=== PATIENT | male | born 1965 | race Caucasian/White ===

== ENCOUNTER 2021-02-03 19:17 | Emergency (ER) | payer SELFPAY ==
[~2021-02-03] VITALS: Ht 175.2 cm; Wt 106.6 kg
== END 2021-02-04 00:27 | disposition home or self-care (01) ==
LOC: ED 19:17
DX: S46.912A Strain of unspecified muscle, fascia and tendon at shoulder and upper arm level, left arm, initial encounter (principal); Z88.0 Allergy status to penicillin; W18.39XA Other fall on same level, initial encounter; Y93.89 Activity, other specified; Y92.89 Other specified places as the place of occurrence of the external cause; Y99.8 Other external cause status

== ENCOUNTER 2023-12-08 19:47 | Emergency (ER) | payer OTHER ==
[~2023-12-08] VITALS: Ht 175.2 cm; Wt 98.6 kg
[2023-12-08] MEDS ORDERED: Tetracaine Hydrochloride 0.5% 4 ML BOT OPH ONE (21:30)
[2023-12-08] MEDS ORDERED: FLUORESCEIN SODIUM 1 MG STRIP OPH ONE (21:30)
[2023-12-08] MEDS ORDERED: Doxycycline Hyclate 100 MG CAP PO ONE (21:55)
[2023-12-08] MEDS ORDERED: CEPHALEXIN 500 MG CAP PO ONE (21:55)
[2023-12-08] MEDS ORDERED: VIBRAMYCIN100 MG PO (21:56)
[2023-12-08] MEDS ORDERED: CEPHALEXIN500 M1 PO (21:56)
== END 2023-12-08 22:30 | disposition home or self-care (01) ==
LOC: ED 19:47
DX: L02.412 Cutaneous abscess of left axilla (principal); Z88.0 Allergy status to penicillin

== ENCOUNTER 2024-05-17 15:00 | Emergency (ER) | payer OTHER ==
[~2024-05-17] VITALS: Ht 175.2 cm; Wt 98.4 kg
[~2024-05-17 15:00] MED LIST: CEPHALEXIN500 M1 PO; VIBRAMYCIN100 MG PO
[2024-05-17] MEDS ORDERED: JARDIANCE25 MG PO (15:17)
[2024-05-17] MEDS ORDERED: AMANTADINE HCL100 M1 PO (15:17)
[2024-05-17] MEDS ORDERED: XARE20MG PO (15:17)
[2024-05-17] MEDS ORDERED: ATORVASTATIN CA40 M1 PO (15:19)
[2024-05-17] MEDS ORDERED: MIDODRINE HCL5 M1 PO (15:19)
[2024-05-17] MEDS ORDERED: Ondansetron4 MG PO (15:20)
[2024-05-17] MEDS ORDERED: METFORMIN XR500 MG PO (15:20)
[2024-05-17] MEDS ORDERED: ENTRESTO 24 MG1 EACH PO (15:21)
[2024-05-17] MEDS ORDERED: METOPROLOL SUCC50 M1 PO (15:21)
[2024-05-17] MEDS ORDERED: TAMSULOSIN HCL0.4 MG PO (15:22)
[2024-05-17] MEDS ORDERED: NATURE'S BLEND F1 MG PO (15:23)
[2024-05-17] MEDS ORDERED: VITAMIN C500 M8 PO (15:23)
[2024-05-17] MEDS ORDERED: PANTOPRAZOLE SO40 MG PO (15:23)
[2024-05-17 16:04] LABS: BASO # 0.1 10*3/uL (0.0-0.1); BASO % 0.6 % (0.0-1.0); EOS # 0.2 10*3/uL (0.0-0.4); EOS % 1.6 % (1.0-4.0); HEMATOCRIT 46.4 % (42.0-52.0); MEAN CELL VOLUME 88.7 fl (80.0-94.0); MEAN CORPUSCULAR HGB 28.9 pg (27.0-31.0); MEAN CORPUSCULAR HGB CONC 32.5 g/dl (33.0-37.0); MEAN PLATELET VOLUME 9.5 fl (9.6-12.3); MONO # 0.9 10*3/uL (0.1-1.0); MONO % 9.5 % (3.0-9.0); NEUT # 6.7 10*3/uL (2.3-7.9); NEUT % 69.2 % (47.0-73.0); PLATELET COUNT AUTOMATED 210 10*3/uL (130-400); RED BLOOD COUNT 5.23 10*6/uL (4.50-5.90); RED CELL DISTRI WIDTH 13.4 % (0-14.5); WHITE BLOOD COUNT 9.8 10*3/uL (4.8-10.8)
[2024-05-17 16:22] LABS: BUN 8 mg/dl (9-23); CHLORIDE 106 mmol/L (98-107)
== END 2024-05-17 18:29 | disposition home or self-care (01) ==
LOC: ED 15:00
PROVIDERS: Emergency Medicine
DX: R04.0 Epistaxis (principal); R11.10 Vomiting, unspecified; I48.91 Unspecified atrial fibrillation; Z88.0 Allergy status to penicillin; Z86.73 Personal history of transient ischemic attack (TIA), and cerebral infarction without residual deficits; Z79.899 Other long term (current) drug therapy; Z98.2 Presence of cerebrospinal fluid drainage device; Z79.84 Long term (current) use of oral hypoglycemic drugs